=== PATIENT | female | born 2000 | race African-American/Black ===

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

== ENCOUNTER 2021-05-22 15:19 | Emergency (ER) | payer SELFPAY ==
[~2021-05-22] VITALS: Ht 165.1 cm; Wt 47.7 kg
[~2021-05-22 15:19] MED LIST changes: +DOCU-109 PO; +FAMO-63 PO; +PRED50TA PO
[2021-05-22 16:42] VITALS: BP 122/79
[2021-05-22] MEDS ORDERED: AZIT250T6 PO (18:04)
--- NOTE | 2021-05-22 18:05 | PHYS DOC ---
Past History Past Medical History: Asthma, Other Additional Past Medical Histor: ECZEMA (HARESH BROOKS) Past Surgical History: Tonsillectomy (HARESH BROOKS) Smoking: Non-smoker Alcohol Use: None Drug Use: None (HARESH BROOKS) General Adult EDM: Chief Complaint: EARACHE/EAR PAIN HPI: HPI: Patient is a 21 year old female who presents with 3-day history of sore throat and 2-day history of right-sided earache. Patient denies nasal congestion, discharge from either ear, fever, chills, generalized weakness. (HARESH BROOKS) Review of Systems: Review of Systems: ROS negative or noncontributory except as mentioned in HPI. (HARESH BROOKS) Allergies: Allergies: Allergies Coded Allergies Type Severity Reaction Last Updated Verified peanut Allergy Intermediate 05/22/21 Yes amoxicillin Allergy Unknown 05/22/21 Yes clavulanic acid Allergy Unknown 05/22/21 Yes tree nut Allergy Unknown 05/22/21 Yes (HARESH BROOKS) Physical Exam: PE: Constitutional: Well developed, well nourished, no acute distress, non-toxic appearance. HENT: Normocephalic, atraumatic, bilateral external ears normal, no tragal tenderness bilaterally, right tympanic membrane with surrounding erythema, left tympanic membrane nonerythematous, oropharynx moist, no oral exudates, nose without obvious deformity or discharge. Eyes: PERRLA, EOMI, conjunctiva normal, no discharge. Neck: Normal range of motion, right sided anterior cervical and preauricular tenderness, no stridor. Cardiovascular: Heart rate regular rhythm, no murmur. Lungs & Thorax: Bilateral breath sounds clear to auscultation. (HARESH BROOKS) Current Patient Data: Vital Signs: Vital Signs Date Time Temp Pulse Resp B/P (MAP) Pulse Ox O2 Delivery O2 Flow Rate FiO2 05/22/21 16:42 99.0 114 16 122/79 (93) 100 Room Air (HARESH BROOKS) Heart Score: C/O Chest Pain: No (HARESH BROOKS) Course & Med Decision Making: Course & Med Decision Making Pertinent Labs and Imaging studies reviewed. (See chart for details) Patient is a 21-year-old female who presents with right-sided ear pain with prodromal upper respiratory symptoms. Patient exam consistent with acute otitis media. Prescription will be sent to her pharmacy of choice. Patient was given return precautions. She understands and is agreeable to discharge plan. (HARESH BROOKS) Celso Disclaimer: Celso Disclaimer: This electronic medical record was generated, in whole or in part, using a voice recognition dictation system. (HARESH BROOKS) Departure Departure: Impression: Primary Impression: Acute right otitis media Disposition: HOME / SELF CARE / HOMELESS Condition: STABLE Referrals: PCP,NO (PCP) Patient Instructions: Otitis Media, Adult, [id number] Additional Instructions: EMERGENCY DEPARTMENT GENERAL DISCHARGE INSTRUCTIONS Thank you for coming to [facility] (ED) today and trusting us with you care. We trust that you had a positive experience in our Emergency Department. If you wish to speak to the department management, you may call the director at [phone]. YOUR FOLLOW UP INSTRUCTIONS ARE FOLLOWS: 1. Do you have a private doctor? If you do not have a private doctor, please ask for a resource list of physicians or clinics that may be able to assist you with follow up care. 2. Please take your antibiotics as prescribed. ADDITIONAL INSTRUCTIONS AND INFORMATION: 1. Your care today has been supervised by a physician who is specially trained in emergency care. Many problems require more than one evaluation for a complete diagnosis and treatment. We recommend that you schedule your follow up appointment as recommended to ensure complete treatment of you illness or injury. If you are unable to obtain follow up care and continue to have a problem, or if your condition worsens, we recommend that you return to the ED. 2. We are not able to safely determine your condition over the phone nor are we able to give sound medical advice over the phone. For these safety reasons, if you call for medical advice we will ask you to come to the ED for further evaluation. 3. If you have any questions regarding these discharge instructions please call the ED at [phone]. SAFETY INFORMATION: In the interest of safety, wellness, and injury prevention; we encourage you to wear your seat belt, if you smoke; quite smoking, and we encourage family to use a protective helmet for bicycling and other sporting events that present an increased risk for head injury. IF YOUR SYMPTOMS WORSEN OR NEW SYMPTOMS DEVELOP, OR YOU HAVE CONCERNS ABOUT YOUR CONDITION; OR IF YOUR CONDITION WORSENS WHILE YOU ARE WAITING FOR YOUR FOLLOW UP APPOINTMENT; EITHER CONTACT YOUR PRIMARY CARE DOCTOR, THE PHYSICIAN WHOSE NAME AND NUMBER YOU WERE GIVEN, OR RETURN TO THE ED IMMEDIATELY. Scripts Azithromycin (AZITHROMYCIN TABLET) 250 Mg Tablet 1 PKG PO UD for AOM for 5 Days, #6 TAB 0 Refills 2 the first day followed by 1 for days 2-5 Prov: HARESH BROOKS 05/22/21 Attending Signature Attending Signature I have participated in the care of this patient and I have reviewed and agree with all pertinent clinical information above including history, exam, and recommendations. (RAMONA ROCHA MD) HARESH BROOKS May 22, 2021 18:05 RAMONA ROCHA MD May 23, 2021 18:33
== END 2021-05-22 18:13 | disposition home or self-care (01) ==
LOC: ER 15:19
DX: H66.91 Otitis media, unspecified, right ear (principal); J02.9 Acute pharyngitis, unspecified; J45.909 Unspecified asthma, uncomplicated; Z91.010 Allergy to peanuts; Z88.1 Allergy status to other antibiotic agents; Z91.018 Allergy to other foods
CPT/HCPCS: 99283